=== PATIENT | male | born 2000 | race Caucasian/White ===

== ENCOUNTER → 2020-06-11 16:16 | Outpatient (BNVA) | payer OTHER, SELFPAY | PROVIDERS: Family Provider Nurse Practitioner Family; Visit Provider Nurse Practitioner | DX: S62.396A Other fracture of fifth metacarpal bone, right hand, initial encounter for closed fracture (principal); X58.XXXA Exposure to other specified factors, initial encounter | CPT/HCPCS: 73130 ==

== ENCOUNTER → 2020-06-12 12:40 | Outpatient (BNVA) | payer OTHER, SELFPAY | PROVIDERS: Family Provider Nurse Practitioner Family; Referring Provider Nurse Practitioner; Visit Provider Specialist | DX: S62.306A Unspecified fracture of fifth metacarpal bone, right hand, initial encounter for closed fracture (principal); X58.XXXA Exposure to other specified factors, initial encounter | CPT/HCPCS: 73130 ==

== ENCOUNTER → 2020-06-19 12:19 | Outpatient (BNVA) | payer OTHER, SELFPAY | PROVIDERS: Family Provider Nurse Practitioner Family; Visit Provider Specialist | DX: S62.306A Unspecified fracture of fifth metacarpal bone, right hand, initial encounter for closed fracture (principal); X58.XXXA Exposure to other specified factors, initial encounter | CPT/HCPCS: 73130 ==

== ENCOUNTER → 2020-07-03 13:08 | Outpatient (BNVA) | payer OTHER, SELFPAY | PROVIDERS: Family Provider Nurse Practitioner Family; Visit Provider Specialist | DX: S62.326A Displaced fracture of shaft of fifth metacarpal bone, right hand, initial encounter for closed fracture (principal); X58.XXXA Exposure to other specified factors, initial encounter | CPT/HCPCS: 73130 ==

== ENCOUNTER 2021-03-30 19:59 | Emergency (ER) | payer OTHER, SELFPAY ==
[2021-03-30 20:06] VITALS: BP 136/82; PULSE 98; RESP 18; TEMP 36.7; O2SAT 100; BMI 16.5
--- NOTE | 2021-03-30 20:16 | ED_ITS ---
HPI - Wound/Laceration General: Chief Complaint: Wound/Laceration Stated Complaint: fish hook in righ hand Time Seen by Provider: 03/30/21 20:16 History of Present Illness: HPI narrative: Patient comes in today for concerns of injury to the right middle finger. Patient was working with his fishing supplies and accidentally stuck his right middle finger and lodged a fishing bar into it. Patient appears well. Patient appears no acute distress. Onset (ago): minute(s) Review of Systems General: Reports: 10 or more systems reviewed and unremarkable except in HPI and below Skin/Breast: Reports: other ([place] in the right middle finger.) PFS ED PFSH: Family History Denies family history of Diabetes Stroke Social History Smoking and tobacco status: never smoked Physical Exam Const: COMMON NORMALS: no acute distress and patient oriented x3 GENERAL APPEARANCE: cooperative HENMT: COMMON NORMALS: normocephalic and Normal external nose present HEAD & SCALP: normal to inspection and normocephalic NOSE: Normal external nose present Eye: GENERAL EYE: appearance normal, both eyes and all related structures Neck/C-Spine: COMMON NORMALS: full ROM Chest: COMMONS NORMALS: normal inspection of the chest Resp: COMMON NORMALS: normal respiratory effort EFFORT & INSPECTION: Yes able to speak in complete sentences Cardio: COMMON NORMALS: regular rate and regular rhythm RATE: regular rate RHYTHM: regular rhythm GI: COMMON NORMALS: non-tender Extremity: NARRATIVE EXTREMITY EXAM: Fishing lure with 1 cynthia stuck into the distal phalanx of the finger pad to the right middle finger. Neuro: COMMON NORMALS: patient oriented x3 and moves all extremities Psych: COMMON NORMALS: mental status grossly normal and cooperative Skin: COMMON NORMALS: no rashes or lesions noted GENERAL SKIN EXAM: no rashes or lesions noted Procedures Foreign Body Removal Site: right and hand Description of foreign body: fish hook Sedation/Analgesia: other (Lidocaine 1 mL infiltration) Technique: removal with forceps and incision made to facilitate removal Confirmed by:: direct visualization Complications: none Post-procedure exam: awake, alert Neurovascular: normal distal pulse and no change from pre-procedure Course Vital Signs: Vital signs: Vital Signs Temperature 98.1 F 03/30/21 20:06 Pulse Rate 98 03/30/21 20:06 Respiratory Rate 18 03/30/21 20:06 Blood Pressure 136/82 03/30/21 20:06 Pulse Oximetry 100 03/30/21 20:06 MDM - Wound/Laceration MDM Narrative: Medical decision making narrative: Patient comes in for removal of a fishing hook to his right middle finger. On exam patient has good range of motion is guarded with movement. Patient does not recall his last tetanus shot. Differential diagnosis includes foreign body, need for prophylaxis tetanus, laceration. Fishing hook was removed with minimal effort under local anesthetic and small incision. Patient tolerated well. Patient agreed to have his tetanus updated. Reviewed post procedure care and need for follow-up. Patient stated understanding. Discharge Plan Discharge Patient Disposition: Home Clinical Impression: Fish hook injury of hand Qualifiers: Encounter type: initial encounter Laterality: right Qualified Code(s): S69.91XA - Unspecified injury of right wrist, hand and finger(s), initial encounter Condition: Stable Prescriptions: No Action (DME) [place] splint See Rx Instructions .Route .MEDSULY Qty: 1 RF: 0 Discharge Orders: Discharge ED (Routine); Ordered 03/30/21 Ordered By: Anthony Gonzalez Discharge Diet: Usual diet Discharge Activity: Increase activity as tolerated Patient Instructions: Acute Wound Care (ED), Opioid Safety Activity Restrictions/Additional Instructions: Keep wound clean and dry. Should clean it with mild soap and water. Use a Band-Aid to cover. Follow-up with primary care as needed. Monitor site for signs of infection such as increased redness, fever, and purulent drainage. Return to the emergency room for new concerns. Coding Level of Care Code ED Accounting Machine Operator for Edwin Kent
[2021-03-30] MEDS: tetanus-dipt-pertussis 0.5 mL SDV IM (20:31)
[2021-03-30] MEDS: lidocaine 1% INJ 20 mL INJECTION (20:35)
--- NOTE | 2021-03-30 20:35 | PC.NURSE ---
Area cleaned with soap and water after hook removed and bandaid applied. Patient tolerated well.
--- NOTE | 2021-04-27 05:05 | PM.HP ---
Providers/Chief Complaint Chief Complaint: fish hook in righ hand History of Present Illness Christopher Lucio is a 21 year old male Medications/Allergies Home Medications Medication Instructions Recorded Confirmed Last Taken Type [place] splint #1 ea 06/12/20 07/03/20 Unknown Rx Allergies Allergy/AdvReac Type Severity Reaction Status Date / Time No Known Allergies Allergy Verified 07/03/20 13:12 PFSH Acute PFSH: Family History Denies family history of Diabetes Stroke Social History Smoking and tobacco status: never smoked Vitals/I&O/Wt Last Vital Signs Temp 98.1 F 03/30/21 20:06 Pulse 98 03/30/21 20:06 Resp 18 03/30/21 20:06 BP 136/82 03/30/21 20:06 Pulse Ox 100 03/30/21 20:06 Coding Level of Care Code Acute Media Executive for Edwin Kent
== END 2021-03-30 20:40 | disposition home or self-care (01) ==
PROVIDERS: Emergency Provider Nurse Practitioner Family
DX: S61.242A Puncture wound with foreign body of right middle finger without damage to nail, initial encounter (principal); W26.8XXA Contact with other sharp object(s), not elsewhere classified, initial encounter; Z23 Encounter for immunization
CPT/HCPCS: 10120; 90471; 90715; 99282

== ENCOUNTER 2021-04-27 04:13 | Inpatient (IN) | payer OTHER, SELFPAY ==
[2021-04-27 04:38] VITALS: BMI 15.5
[2021-04-27 04:57] VITALS: BP 118/76; PULSE 117; RESP 18; TEMP 36.9; O2SAT 99
--- NOTE | 2021-04-27 06:06 | PM.HP ---
Providers/Chief Complaint Admitting Physician: Frank Mead MD Chief Complaint: GI Bleed History of Present Illness Christopher Lucio is a 21 year old male with no known past medical history presented today with chief complaint of dark-colored stool. Patient is stating that his symptoms started 24 hours before his arrival in the ER with dark color bowel movements. He is denying previous history of gastric ulcer, alcohol abuse, daily use of NSAIDs, liver disease. He has had 7 bowel movements with dark/coffee-ground stool color. He is denying fever, abdominal pain, dysuria, joint pains, skin rash, recent use of antibiotics. Of note, [place]. He is denying recent camping, tick bites. He did not swim in the [place]. He was transferred from [facility] for possible endoscopy, he was tachycardic hemoglobin initially was 15, he drove himself to [facility], at arrival blood pressure 118/76 pulse 117, he had 1 bowel movement as soon as he arrived and noticed maroon/coffee-ground bowel movement. Review of Systems Const: Denies: fever(s) or chills Eyes: Denies: change in vision ENMT: Denies: throat pain Card: Denies: chest pain Resp: Denies: dyspnea GI: Reports: melena : Denies: flank pain Musc: Denies: neck pain Skin/Breast: Denies: rash Neuro: Denies: headache(s) Psych: Denies: anxiety Endo: Denies: polyuria Jordan/Lymph: Denies: easy bruising All/Imm: Denies: urticaria Medications/Allergies Home Medications Medication Instructions Recorded Confirmed Last Taken Type [place] splint #1 ea 06/12/20 07/03/20 Unknown Rx Allergies Allergy/AdvReac Type Severity Reaction Status Date / Time No Known Allergies Allergy Verified 07/03/20 13:12 PFSH Acute PFSH: Medical History Fracture of fifth metacarpal bone of right hand No pertinent past medical history Surgical History History of cholecystectomy Family History Denies family history of Diabetes Stroke Social History Smoking and tobacco status: never smoked Alcohol intake: current Alcohol intake frequency: holidays/special occasions only Substance/Drug Use: never Household members: significant other Vitals/I&O/Wt Last Vital Signs Temp 98.4 F 04/27/21 04:57 Pulse 117 H 04/27/21 04:57 Resp 18 04/27/21 04:57 BP 118/76 04/27/21 04:57 Pulse Ox 99 04/27/21 04:57 Weight last 48 hrs Weight 52.163 kg Physical Exam Narrative: EXAM NARRATIVE: Young male Laying comfortably in his bed S1, S2 sinus tachycardia Clinical signs of dehydration No skin rash noted Abdomen soft nontender Digital rectal exam with external hemorrhoids Lower extremities no edema EOMI, PERRLA No active neurological deficits No joint swelling A&P Assessment and plan (1) Melanotic stools: Status: Acute Additional A&P Information Melanotic stools Stable blood pressure, clinical signs of dehydration and tachycardia 1 L bolus and start maintenance fluid rate continue n.p.o. Protonix 40 IV twice daily Check stat CBC and BMP Previous hemoglobin 15 Check stool for ova and parasites No previous history of gastric ulcer does not use NSAIDs on daily basis, drinks alcohol occasionally, rectal exam with external hemorrhoid which would not explain melanotic stools H&H at 9 AM N.p.o. DVT prophylaxis: SCDs Full code Attestations Medical Necessity Statement*: Anticipating discharge within 48 hours need monitoring for melanotic stools Time Spent in Patient Care: 35mins Coding Level of Care Code Acute Chief Design Drafter for Edwin Kent Diagnoses Melanotic stools K92.1
[2021-04-27] MEDS: lactated ringers 1,000 ML 999 ML IV (06:15)
[2021-04-27 08:00] VITALS: BP 96/61; PULSE 92; RESP 14; TEMP 36.7; O2SAT 98
[2021-04-27] MEDS: sodium chloride 0.9% 1,000 ML 75 ML IV (08:19)
[2021-04-27] MEDS: pantoprazole 40 mg SDV IVP ×2 (09:34→17:09)
[2021-04-27 09:56] LABS: Basophils % 0.2 %; Eosinophils % 0.5 %; Hematocrit 35.1 % (42.0-52.0); Hemoglobin 11.9 g/dL (11.7-16.6); Lymphocytes # 1.5 10^3/uL (0.8-4.8); Lymphocytes % 18.2 %; Mean Corpuscular HGB Conc 33.9 g/dL (30.0-36.0); Mean Corpuscular Hemoglobin 31.2 pg (28.0-34.0); Mean Corpuscular Volume 91.9 fL (80-94); Mean Platelet Volume 10.8 fL (7.4-10.4); Monocytes # 0.7 10^3/uL (0.2-0.9); Monocytes % 8.6 %; Neutrophils # 5.96 10^3/uL (1.8-7.7); Neutrophils % 72.3 %; Nucleated Red Blood Cells % 0 %; Platelet Count 215 10^3/cmm (130-400); Red Blood Count 3.82 10^6/uL (4.1-5.3); White Blood Count 8.3 10^3/uL (4.0-10.0)
[2021-04-27 10:12] LABS: Anion Gap 11.3 (5-19); Blood Urea Nitrogen 14 mg/dL (6-20); Calcium 8.5 mg/dL (8.5-10.5); Carbon Dioxide 28 mmol/L (22-29); Chloride 107 mmol/L (98-107); Glucose 104 mg/dL (65-115); Osmolality Calculated 295 mOsm/kg (285-295); Potassium 4.3 mmol/L (3.5-5.1); Sodium 142 mmol/L (136-145)
[2021-04-27 10:34] LABS: Amphetamines Screen Urine Negative (Negative); Barbiturates Screen Urine Negative (Negative); Benzodiazepines Screen Urine Negative (Negative); Cocaine Screen Urine Negative (Negative); Opiate Screen Urine Negative (Negative); PCP Screen Urine Negative (Negative); THC Screen Urine Negative (Negative)
[2021-04-27 11:22] VITALS: BP 100/65; PULSE 89; RESP 15; TEMP 37.1; O2SAT 99
--- NOTE | 2021-04-27 12:34 | PC.NURSE ---
Mom requesting call from doctor. Doctor notified.
[2021-04-27 13:08] LABS: C Reactive Protein 2.4 mg/L (0.0-4.9)
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
[2021-04-27 14:22] LABS: Erythrocyte Sedimentation Rate 8 mm/hr (0-10)
[2021-04-27] MEDS: iohexol 300 mg/mL 100 mL Btl IV (15:05)
[2021-04-27 16:00] VITALS: BP 106/63; PULSE 79; RESP 16; TEMP 36.9; O2SAT 100
--- NOTE | 2021-04-27 18:31 | PC.NURSE ---
patient's mother wants patient transferred to [place] or [facility] in [place].
[2021-04-27 20:00] VITALS: BP 113/69; PULSE 84; RESP 17; TEMP 37.3; O2SAT 97
[2021-04-27 22:20] LABS: Hemoglobin 10.9 g/dL (11.7-16.6)
[2021-04-28] VITALS (7 sets, daily range): BP systolic 88–113; BP diastolic 53–66; PULSE 70–96; RESP 16–18; TEMP 36.6–37; O2SAT 98–100
[2021-04-28] MEDS: sodium chloride 0.9% 1,000 ML 75 ML IV ×2 (00:31→09:13)
[2021-04-28 05:39] LABS: Basophils % 0.8 %; Eosinophils # 0.1 10^3/uL (0.0-0.8); Eosinophils % 2.3 %; Hemoglobin 10.4 g/dL (11.7-16.6); Lymphocytes # 1.6 10^3/uL (0.8-4.8); Lymphocytes % 30.5 %; Mean Corpuscular HGB Conc 33.5 g/dL (30.0-36.0); Mean Corpuscular Hemoglobin 31.5 pg (28.0-34.0); Mean Corpuscular Volume 93.9 fL (80-94); Monocytes # 0.6 10^3/uL (0.2-0.9); Monocytes % 10.9 %; Neutrophils # 2.88 10^3/uL (1.8-7.7); Neutrophils % 55.1 %; Nucleated Red Blood Cells % 0 %; Platelet Count 174 10^3/cmm (130-400); Red Cell Distribution Width 12.9 % (12.1-15.1); White Blood Count 5.2 10^3/uL (4.0-10.0)
[2021-04-28 05:56] LABS: Alanine Aminotransferase 8 U/L (0-41); Albumin Level 3.2 g/dL (3.5-5.2); Alkaline Phosphatase 67 IU/L (40-130); Anion Gap 10.1 (5-19); Aspartate Amino Transferase 10 U/L (0-40); Blood Urea Nitrogen 15 mg/dL (6-20); Calcium 8.4 mg/dL (8.5-10.5); Carbon Dioxide 26 mmol/L (22-29); Chloride 107 mmol/L (98-107); Creatinine Clr Calc Pharmacy 121.0927; Globulin 1.9 g/dL (1.3-4.6); Glomerular Filtration Rate 139.8 mL/min (90-130); Glucose 76 mg/dL (65-115); Osmolality Calculated 288 mOsm/kg (285-295); Potassium 4.1 mmol/L (3.5-5.1); Sodium 139 mmol/L (136-145); Total Bilirubin 0.9 mg/dL (0.15-1.2); Total Protein 5.1 g/dL (6.6-8.7)
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
[2021-04-28] MEDS: pantoprazole 40 mg SDV IVP ×2 (09:11→18:08)
--- NOTE | 2021-04-28 10:01 | PC.CHAP ---
Pastoral Care Encounter/Spiritual Assessment Type of Contact [] Declined checkroom attendant visit [] Patient/Family/Request visit [] Outpatient visit [] Follow-up visit [] Physician referral [] Code/Alert [x] Routine visit [] Staff referral [] Actively dying [] Patient sleeping [] Family support [] [] Out of room [] Palliative care [] [] Receiving care in room [] Pre-surgical visit [] Trauma [] Long length of stay [] ICU visit [] Other: Relational/Emotional Strength [] Patient feels connected with others/family/visitors/staff [] Distress [] Loneliness/isolation [] Abandonment Spirituality of Patient [x] Person of Mel [] Attends Congregation of their Mel x[x] Believes in Prayer [] Reads Bible or Quaker materials [] There are Spiritual issues to be addressed Crime Scene Specialist Interventions [x] Prayer [] Active listening [] Non-anxious presence [] Spiritual/emotional support [] Crisis/trauma care [] Spiritual counseling [] Bereavement support [] Provided bereavement packet [] Provided Bible/devotional materials [] Provided toy/stuffed animal, coloring book to patient or family member [] Provided Communion [] Anointing/[place] [] Salvation [x] Completed spiritual assessment [] Other: Impact on Illness or Injury [] Angry [] Fearful [] Anxious [] Often cries [] Exhaustion [] Unable to work [] Unable to attend caodaism [] Unable to walk/stand [] Unable to read [] Unable to drive [] Unable to eat/drink [] Unable to sleep [] Unable to be with family [] Patient intubated [] Other: Summary patient feeling better Time spent with patient 10 min
--- NOTE | 2021-04-28 11:44 | PM.PN ---
Subjective Subjective: Interval history: He reports he has not had any further dark or maroon bowel movements. Denies abdominal pain. No nausea or vomiting. Discussed with him again regarding availability of endoscopic evaluation here. No beds are available today either at [facility] or [place]. He is accepted at [place], however, due to lack of beds there is not clear when a transfer might occur. He states that this time he prefers to continue waiting transfer, with recheck hemoglobin later this evening. He asks about some oral intake, ice chips, water, etc. Vitals/I&O/Wt Last Vital Signs Temp 98.3 F 04/28/21 08:00 Pulse 93 04/28/21 08:00 Resp 18 04/28/21 08:00 BP 102/64 04/28/21 08:00 Pulse Ox 99 04/28/21 08:00 04/27/21 04/28/21 04/28/21 22:59 06:59 14:59 Intake Total 999 652.5 / 652.5 Balance 999 652.5 / 652.5 Weight last 48 hrs Weight 52.163 kg Physical Exam Const: COMMON NORMALS: no acute distress and patient oriented x3 HENMT: COMMON NORMALS: oropharynx normal Neck/C-Spine: COMMON NORMALS: no JVD Resp: COMMON NORMALS: normal respiratory effort and clear to auscultation bilaterally AUSCULTATION: clear to auscultation bilaterally Cardio: COMMON NORMALS: no JVD, regular rhythm, S1 normal heart sound present, S2 normal heart sound present and No murmurs present (Cardio) RHYTHM: regular rhythm HEART SOUNDS: S1 normal heart sound present and S2 normal heart sound present GI: COMMON NORMALS: Normal to inspection, nondistended, normoactive bowel sounds present, Soft to palpation and non-tender PALPATION: Yes Soft to palpation Extremity: COMMON NORMALS: no joint enlargement and no pedal edema Neuro: COMMON NORMALS: patient oriented x3 and moves all extremities Skin: COMMON NORMALS: no rashes or lesions noted GENERAL SKIN EXAM: no rashes or lesions noted Data : 04/28/21 05:10 04/28/21 05:10 Micro: Microbiology 04/27/21 10:04 Enteric Pathogens (PCR) - Final Stool Routine Collection Parasite Antigen Panel - Final A&P Assessment and plan (1) Melanotic stools: Hemoglobin with further decline to 10.4. Discussed with him this morning. However, he states has not had any further melanotic stools or maroon-colored stools. Denies abdominal pain. No nausea or vomiting. When some water, ice just. As per discussion he would like to continue to await transfer to , currently pending bed opening. As such discussed with him we could confirm with surgery given he is not pursuing endoscopy here regarding strength some oral intake. CT abdomen pelvis with IV contrast without signs of trauma. Incidental findings with liver nodule, renal cysts discussed with him, his mother and girlfriend present at the time as well. Stool bacterial and parasite panel is negative. Add C. difficile. Continue bowel rest, PPI. Recheck hemoglobin. As per prior discussion at some point additional consideration of Meckel scan may be of benefit. Status: Acute Attestations Medical Necessity Statement*: Continue admission for assessment management of GI bleeding with acute blood loss anemia, pending transfer to outside facility for additional work-up and treatment as per patient and family request. Coding Level of Care Code Acute Service Delivery Consultant for Edwin Kent Diagnoses Melanotic stools K92.1
--- NOTE | 2021-04-28 15:10 | PC.NURSE ---
I called and spoke with [facility] Transfer Service and per Paola with them, there will not likely be a medical bed for patient until 04/29. I went into patient's room and spoke with him and informed him of this. I also informed him that I had spoken with Dr. Alvarez and he would not be comfortable with discharging the patient today. The patient verbalizes understanding and wishes to think about his options and will let us know as soon as he has reached a decision. I spoke with Dr. Alvarez and informed him of this.
[2021-04-28 17:34] LABS: Hemoglobin 12.5 g/dL (11.7-16.6)
[2021-04-29 03:30] VITALS: BP 99/61; PULSE 83; RESP 16; TEMP 36.5; O2SAT 99
[2021-04-29 06:13] LABS: Basophils % 0.6 %; Eosinophils # 0.1 10^3/uL (0.0-0.8); Eosinophils % 2.8 %; Hematocrit 29.3 % (42.0-52.0); Hemoglobin 9.9 g/dL (11.7-16.6); Lymphocytes # 1.3 10^3/uL (0.8-4.8); Lymphocytes % 28.4 %; Mean Corpuscular HGB Conc 33.8 g/dL (30.0-36.0); Mean Corpuscular Hemoglobin 31.3 pg (28.0-34.0); Mean Corpuscular Volume 92.7 fL (80-94); Mean Platelet Volume 10.7 fL (7.4-10.4); Monocytes # 0.5 10^3/uL (0.2-0.9); Monocytes % 9.8 %; Neutrophils # 2.72 10^3/uL (1.8-7.7); Nucleated Red Blood Cells % 0 %; Platelet Count 184 10^3/cmm (130-400); Red Blood Count 3.16 10^6/uL (4.1-5.3); Red Cell Distribution Width 12.6 % (12.1-15.1); White Blood Count 4.7 10^3/uL (4.0-10.0)
[2021-04-29 06:29] LABS: Alanine Aminotransferase 6 U/L (0-41); Albumin Level 3.2 g/dL (3.5-5.2); Alkaline Phosphatase 58 IU/L (40-130); Anion Gap 10.4 (5-19); Aspartate Amino Transferase 10 U/L (0-40); Blood Urea Nitrogen 12 mg/dL (6-20); Calcium 8.1 mg/dL (8.5-10.5); Carbon Dioxide 28 mmol/L (22-29); Chloride 105 mmol/L (98-107); Globulin 1.9 g/dL (1.3-4.6); Glucose 79 mg/dL (65-115); Osmolality Calculated 287 mOsm/kg (285-295); Potassium 4.4 mmol/L (3.5-5.1); Sodium 139 mmol/L (136-145); Total Bilirubin 0.5 mg/dL (0.15-1.2); Total Protein 5.1 g/dL (6.6-8.7)
[2021-04-29] MEDS: sodium chloride 0.9% 1,000 ML 75 ML IV ×2 (06:40→18:31)
[2021-04-29 07:30] VITALS: BP 99/62; PULSE 74; RESP 18; TEMP 36.7; O2SAT 98
[2021-04-29] MEDS: pantoprazole 40 mg SDV IVP ×2 (08:24→18:31)
--- NOTE | 2021-04-29 10:36 | PC.CHAP ---
Pastoral Care Encounter/Spiritual Assessment Type of Contact [] Declined orthopedic shoes salesperson visit [] Patient/Family/Request visit [] Outpatient visit [] Follow-up visit [] Physician referral [] Code/Alert [x] Routine visit [] Staff referral [] Actively dying [] Patient sleeping [] Family support [] [] Out of room [] Palliative care [] [] Receiving care in room [] Pre-surgical visit [] Trauma [] Long length of stay [] ICU visit [] Other: Relational/Emotional Strength [] Patient feels connected with others/family/visitors/staff [] Distress [] Loneliness/isolation [] Abandonment Spirituality of Patient [] Person of Mel [] Attends Hoahaoism of their Mel [] Believes in Prayer [] Reads Bible or Jew materials [] There are Spiritual issues to be addressed Consumer Analyst Interventions [x] Prayer [] Active listening [] Non-anxious presence [] Spiritual/emotional support [] Crisis/trauma care [] Spiritual counseling [] Bereavement support [] Provided bereavement packet [] Provided Bible/devotional materials [] Provided toy/stuffed animal, coloring book to patient or family member [] Provided Communion [] Anointing/[place] [] Salvation [] Completed spiritual assessment [] Other: Impact on Illness or Injury [] Angry [] Fearful [] Anxious [] Often cries [] Exhaustion [] Unable to work [] Unable to attend rastafarian [] Unable to walk/stand [] Unable to read [] Unable to drive [] Unable to eat/drink [] Unable to sleep [] Unable to be with family [] Patient intubated [] Other: Summary patient ok Time spent with patient 10 min
[2021-04-29 11:46] VITALS: BP 107/72; PULSE 100; RESP 16; TEMP 36.8; O2SAT 97
[2021-04-29 15:33] VITALS: BP 96/55; PULSE 81; RESP 18; TEMP 36.9; O2SAT 100
[2021-04-29 19:25] VITALS: BP 108/70; PULSE 81; RESP 18; TEMP 36.8; O2SAT 100
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
[2021-04-29 23:45] VITALS: BP 97/63; PULSE 70; RESP 16; TEMP 36.7; O2SAT 100
[2021-04-30 03:40] VITALS: BP 96/60; PULSE 74; RESP 16; TEMP 36.6; O2SAT 99
[2021-04-30 06:47] LABS: Basophils % 0.5 %; Eosinophils # 0.1 10^3/uL (0.0-0.8); Eosinophils % 2.2 %; Hematocrit 30.3 % (42.0-52.0); Hemoglobin 10.2 g/dL (11.7-16.6); Lymphocytes # 1.1 10^3/uL (0.8-4.8); Lymphocytes % 25.4 %; Mean Corpuscular HGB Conc 33.7 g/dL (30.0-36.0); Mean Corpuscular Hemoglobin 31.7 pg (28.0-34.0); Mean Corpuscular Volume 94.1 fL (80-94); Mean Platelet Volume 10.9 fL (7.4-10.4); Monocytes # 0.5 10^3/uL (0.2-0.9); Monocytes % 10.9 %; Neutrophils # 2.52 10^3/uL (1.8-7.7); Neutrophils % 60.8 %; Nucleated Red Blood Cells % 0 %; Platelet Count 189 10^3/cmm (130-400); Red Blood Count 3.22 10^6/uL (4.1-5.3); Red Cell Distribution Width 12.5 % (12.1-15.1); White Blood Count 4.1 10^3/uL (4.0-10.0)
[2021-04-30 07:38] VITALS: BP 93/57; PULSE 74; RESP 18; TEMP 36.9; O2SAT 100
[2021-04-30] MEDS: pantoprazole 40 mg SDV IVP (10:20)
[2021-04-30 11:27] VITALS: BP 113/68; PULSE 93; RESP 18; TEMP 37.1; O2SAT 100
--- NOTE | 2021-04-30 12:04 | PM.PN ---
Subjective Subjective: Interval history: patient has been doing ok, no evidence of active GI bleed Vitals/I&O/Wt Last Vital Signs Temp 98.7 F 04/30/21 11:27 Pulse 93 04/30/21 11:27 Resp 18 04/30/21 11:27 BP 113/68 04/30/21 11:27 Pulse Ox 100 04/30/21 11:27 04/29/21 04/30/21 04/30/21 22:59 06:59 14:59 Intake Total 948.75 / 1728.75 240 / 1728.75 1000 / 1000 Balance 948.75 / 1728.75 240 / 1728.75 1000 / 1000 Physical Exam Narrative: EXAM NARRATIVE: Abdomen : soft Data : 04/30/21 06:00 04/29/21 05:40 A&P Assessment and plan (1) Melanotic stools: 21-year-old male otherwise healthy who presents with 24-hour history of melanotic stool. He has not had any further bleeding per rectum since last night and he denies any abdominal pain, nausea, vomiting. CT abdomen pelvis performed yesterday did not show any evidence of injury. Patient's family wants him transferred to [place] and is currently on the waiting list. Patient has been stable without any evidence of active GI bleed and Hb is 10.2 but he wants to proceed with an EGD now since he is unlikely to get transferred with the bed shortage. Procedure, risks and benefits have been discussed with the patient Continue Protonix IV 40 twice daily Status: Acute Attestations Medical Necessity Statement*: melena Coding Level of Care Code Acute Hair Clipper Power [facility] Diagnoses Melanotic stools K92.1
[2021-04-30 12:20] VITALS: BP 132/73; PULSE 89; RESP 18; TEMP 37.4; O2SAT 100
[2021-04-30] MEDS: sodium chloride 0.9% 1,000 ML 30 ML IV (12:30)
[2021-04-30 12:51] VITALS: BP 132/79; PULSE 100; RESP 18; TEMP 36.1; O2SAT 97
--- NOTE | 2021-04-30 12:53 | P.ANESASSM_ITS ---
Pre-Anesthetic Assessment Pre-Anesthetic Assessment: Height/Weight: Height 1.83 m Weight 52.163 kg Temp Pulse Resp BP Pulse Ox 99.3 F 89 18 132/73 100 04/30/21 12:20 04/30/21 12:20 04/30/21 12:20 04/30/21 12:20 04/30/21 12:20 Preop Diagnosis: melena Proposed Procedure: Operation Date: 04/30/21 12:30 Proposed Procedures p EGD(Not Applicable) - Rodrigo Amezcua MD Was Beta Manjula taken within 24 hours: N/A Was Clonidine taken within 24 hours: N/A Social: Social History: No alcohol and No tobacco Exam: Pre-Anes Outpt Exam: alert, oriented x 3, clear to auscultation bilaterally and regular rate & rhythm Airway: Submandibular: WNL Cervical ROM: WNL MP: 2 Pulmonary: Pulmonary: None reported CV/HEM: CV/HEM: None reported : : None reported Hepatic: Hepatic: None reported GI: Comments: Melena and abdominal pain Metabolic: Metabolic: None reported Musc/skel: Musc/skel: None reported Neuropsych: Neuropsych: None reported Anesthetic Plan: ASA status: 2 Anesthesia: MAC Meds/Allergies Current Medications: Current Medications Generic Name Dose Route Start Last Admin Trade Name Freq PRN Reason Stop Dose Admin Pantoprazole Sodiu m 40 mg 04/27/21 09:00 04/30/21 10:20 Pantoprazole 40 Mg Sdv IVP 40 mg BID SAULO Administration PFSH Anesthesia PFSH: Medical History Fracture of fifth metacarpal bone of right hand No pertinent past medical history Surgical History History of cholecystectomy Family History Denies family history of Diabetes Stroke Social History Smoking and tobacco status: never smoked Alcohol intake: current Alcohol intake frequency: holidays/special occasions only Substance/Drug Use: never Household members: significant other Data Anesthesia CBC & Chem 7: 04/30/21 06:00 04/29/21 05:40 Other Labs: Laboratory Results - last 48 hr 04/28/21 04/29/21 04/29/21 17:11 05:40 05:40 WBC 4.7 RBC 3.16 L Hgb 12.5 9.9 L Hct 29.3 L MCV 92.7 MCH 31.3 MCHC 33.8 RDW 12.6 Plt Count 184 MPV 10.7 H Neut % (Auto) 58.0 Lymph % (Auto) 28.4 [place] % (Auto) 9.8 Eos % (Auto) 2.8 Baso % (Auto) 0.6 Neut # (Auto) 2.72 Lymph # (Auto) 1.3 [place] # (Auto) 0.5 Eos # (Auto) 0.1 Baso # (Auto) 0.0 Nucleated RBC % (auto) 0 Nucleated RBCs # 0.0 Sodium 139 Potassium 4.4 Chloride 105 Carbon Dioxide 28 Anion Gap 10.4 BUN 12 Creatinine 0.6 L GFR Calculation 167.0 H Glucose 79 Calculated Osmolality 287 Calcium 8.1 L Total Bilirubin 0.5 AST 10 ALT 6 Alkaline Phosphatase 58 Total Protein 5.1 L Albumin 3.2 L Globulin 1.9 04/30/21 06:00 WBC 4.1 RBC 3.22 L Hgb 10.2 L Hct 30.3 L MCV 94.1 H MCH 31.7 MCHC 33.7 RDW 12.5 Plt Count 189 MPV 10.9 H Neut % (Auto) 60.8 Lymph % (Auto) 25.4 [place] % (Auto) 10.9 Eos % (Auto) 2.2 Baso % (Auto) 0.5 Neut # (Auto) 2.52 Lymph # (Auto) 1.1 [place] # (Auto) 0.5 Eos # (Auto) 0.1 Baso # (Auto) 0.0 Nucleated RBC % (auto) 0 Nucleated RBCs # 0.0 Sodium Potassium Chloride Carbon Dioxide Anion Gap BUN Creatinine GFR Calculation Glucose Calculated Osmolality Calcium Total Bilirubin AST ALT Alkaline Phosphatase Total Protein Albumin Globulin Cardiac Studies: No Data to Display
[2021-04-30 13:02] VITALS: BP 121/73; PULSE 84; RESP 18; O2SAT 100
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
== END 2021-04-30 14:17 | disposition home or self-care (01) | DRG 378 ==
PROVIDERS: Surgery; Admitting Provider Internal Medicine; Visit Provider Internal Medicine
PROC: 0DJ08ZZ Inspection of Upper Intestinal Tract, Via Natural or Artificial Opening Endoscopic (ICD-10-PCS; CPT 43235; principal; 2021-04-30 12:30)
DX: K92.1 Melena (principal); D62 Acute posthemorrhagic anemia; K64.4 Residual hemorrhoidal skin tags; K76.9 Liver disease, unspecified; N28.1 Cyst of kidney, acquired; E86.0 Dehydration
CPT/HCPCS: 36415; 43235; 74177; 80048; 80053; 80306; 85018; 85025; 85651; 86140; 87425; 87493; 87506; C9113; G0378; G0379; J2704; J7030; Q9967

== ENCOUNTER 2021-07-12 23:07 | Emergency (ER) | payer OTHER, SELFPAY ==
[2021-07-12 23:23] VITALS: BP 132/86; PULSE 94; RESP 18; TEMP 36.6; O2SAT 100; BMI 15.5
--- NOTE | 2021-07-12 23:37 | ED_ITS ---
HPI - Animal Bite General: Chief Complaint: Animal Bite Stated Complaint: Raccoon Bite Time Seen by Provider: 07/12/21 23:10 Source: patient Mode of arrival: ambulatory Limitations: no limitations History of Present Illness: HPI narrative: Patient is a 21-year-old male who presents to ED today following a raccoon bite to his left forearm that he sustained just prior to arrival. Patient tells me the raccoon is an outdoor pet that they have had since it was 2 weeks old. He states normally the raccoon stays around the house and sleeps in a tree box they created for it however he states approximately 2 weeks ago the raccoon left and was missing until it came back this evening. Patient states he was playing with the animal and he seemed to be acting normally however he bit him to his left forearm. complaint: animal bite Onset (ago): hour(s) Animal: other (raccoon) Description of animal: appeared well Mechanism: bite Location - Extremities: Left: forearm Context: playing with animal Associated symptoms: Reports no associated symptoms; Deny headache(s) Review of Systems Musc: Denies: extremity pain, extremity swelling, joint pain or joint swelling Skin/Breast: Reports: other (bite/scratches to L forearm) Neuro: Denies: headache(s), numbness in extremities, weakness in extremities or sensory changes PFS ED PFSH: Medical History Fracture of fifth metacarpal bone of right hand No pertinent past medical history Surgical History History of cholecystectomy Family History Denies family history of Diabetes Stroke Social History Smoking and tobacco status: never smoked Alcohol intake: current Alcohol intake frequency: holidays/special occasions only Household members: significant other Physical Exam Const: COMMON NORMALS: no acute distress, average body habitus, patient oriented x3, no limitations, healthy appearing, alert and well nourished ORIENTATION/CONSCIOUSNESS: Yes awake, Yes oriented to person, Yes oriented to place and Yes oriented to time Extremity: COMMON NORMALS: full ROM OTHER: pt has very minor bite to volar L forearm; some minor surrounding scratches Neuro: COMMON NORMALS: patient oriented x3 SENSORIUM/ORIENTATION: Yes alert, Yes oriented to person, Yes oriented to place and Yes oriented to time Skin: NARRATIVE SKIN EXAM: see extremity assessment for pertinent skin findin gs Course Vital Signs: Vital signs: Vital Signs Temperature 97.8 F 07/12/21 23:23 Pulse Rate 94 07/12/21 23:23 Respiratory Rate 18 07/12/21 23:23 Blood Pressure 132/86 07/12/21 23:23 Pulse Oximetry 100 07/12/21 23:23 MDM - Animal Bite MDM Narrative: Medical decision making narrative: Will start rabies PEP and place on prophylactic antibiotics. Return to ED precautions given. Patient was given schedule for remainder of rabies immunizations. Discharge Plan Discharge Patient Disposition: Home Clinical Impression: Need for post exposure prophylaxis for rabies Bitten by raccoon Qualifiers: Encounter type: initial encounter Qualified Code(s): W55.51XA - Bitten by raccoon, initial encounter Condition: Stable Prescriptions: New Augmentin 875-125 mg tablet 1 tab PO Q12H 7 Days Qty: 14 RF: 0 Discharge Orders: Discharge ED (Routine); Ordered 07/13/21 Ordered By: Lien Mary Patient Instructions: Rabies Vaccine (Injection), Rabies Immune Globulin (Injection) Activity Restrictions/Additional Instructions: You have been given a schedule for the remainder of your rabies immunizations. These can be completed at [facility] urgent care. Monitor for signs of infection such as redness, swelling, increased pain, drainage. Please seek medical reevaluation of these occur. Please fill and begin your antibiotics immediatley. Coding Level of Care Code ED Systems Navigator for Edwin Fwd Exam Expanded Problem Focused
[2021-07-13] MEDS: amoxicillin-clav 875-125 mg Tablet 1 TAB PO (00:05)
[2021-07-13] MEDS: rabies vaccine 2.5 unit SDV IM (01:08)
[2021-07-13] MEDS: rabies IG 300 unit/mL SDV 1 mL 1200 UNIT IM (01:12)
== END 2021-07-13 01:17 | disposition home or self-care (01) ==
PROVIDERS: Emergency Provider Physician Assistant
DX: S51.852A Open bite of left forearm, initial encounter (principal); W55.51XA Bitten by raccoon, initial encounter; Z20.3 Contact with and (suspected) exposure to rabies; Z29.14 Encounter for prophylactic rabies immune globulin; Z23 Encounter for immunization
CPT/HCPCS: 90375; 90471; 90675; 96372; 99283

== ENCOUNTER 2021-12-28 14:34 | Outpatient (CLI) | payer OTHER, SELFPAY ==
--- NOTE | 2021-12-31 07:53 | ONC CON_ITS ---
Dr. Garcia New Patient Note Patient: Christopher Lucio Unit #: [id number]: 2000 Dicatated By: Ashwin Garcia M.D.Date of Visit: Dec 28, 2021 Onc MED New Patient/Consult Referring Physician: Dr. Frank Aviles M.D. Chief Complaint: Anemia. History of Present Illness: This is a 21-year-old man with hypochromic/microcytic anemia. He has been in good general health. In April 2021 he was admitted to the hospital with a one-day history of having melanotic stools. His initial CBC showed borderline low hemoglobin at 12.5 g, but overnight it dropped to 9.9 g. His EGD on 04/30/2021 showed no abnormal findings. He was discharged home with his hemoglobin stable at 10.2 g. The red cell indices at that time were normal. A follow-up CBC with Dr. Aviles on 09/28/2021 showed moderately severe anemia with hemoglobin 9.4 g and hematocrit 32.3%. The red cell indices were hypochromic/microcytic with MCV 69 and MCH 20. The white blood cell count was normal at 8600 and the platelet count was 308,000. As of 11/24/2021 the hemoglobin is still low at 8.7 g. His serum iron studies showed very low transferrin saturation at <1% and the ferritin was low at 1 ng/mL, consistent with iron deficiency. He recently had stool Hemoccult testing, and at least 1 of those was positive. In the meantime, he did have additional GI evaluation with a baked goods stock clerk in [place], [place]. I do not have those results available, but the EGD reportedly showed some gastritis. There were no abnormal findings on the colonoscopy. He is now scheduled to have further evaluation with camera endoscopy. His most recent CBC, from 12/21/2021, showed hemoglobin 8.7 g with hematocrit 32.6%. The red cell indices were again hypochromic/microcytic. The white blood cell count was 7500 and the platelet count was 454,000. Within the past 2 or 3 days he has started an oral iron supplement. He says that he has not necessarily been feeling bad, though he has been tiring more easily and he has noticed that he gets short of breath with more strenuous activity. He has been able to continue working, though. His ECOG score is 0. He has good appetite. His weight recently has been up a little. He does not have fever or night sweats. He has not had sore mouth or throat, and he has no difficulty swallowing. He does not complain of cough. He has not been having resting dyspnea or chest pain. He has had no nausea/vomiting or abdominal pain. He has had no problems with bowel function other than occasional, mild constipation. He has not been aware of any blood in the stool. He has no complaints. He has no significant joint or bone pain. He does not complain of headache. He has occasional orthostatic lightheadedness. He has no numbness/paresthesia or other focal neurologic symptoms. He does have some chronic anxiety. Past Medical History: He has had some chronic anxiety. He has had no other prior medical illnesses. Past Surgical History: He underwent EGD on , and he had a subsequent EGD and colonoscopy in [place]. His only other surgery was acholecystectomy in 2016. Medications: He has not been on any prescription medication. He recently started ferrous sulfate 325 mg daily. Allergies: No Known Allergies. Social History: He is . 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 He is a non-smoker. He has had moderate alcohol use, typically 2 beers per day, but occasionally a little more. He has cut down now. Family History: His mother and father are in good health, both at age 48. A brother has ADHD, but he is otherwise in good health. There is no history of anemia in the family. Review Of Symptoms: Constitutional - He complains that he tires more easily, but he has normal activity. His appetite is good. His weight is up a few pounds. He does not have fever, night sweats, or hot flashes. ECOG score is 0, Eyes - No change in vision, ENMT - No hearing loss or tinnitus. No sinus congestion/drainage. No mouth sores. No sore throat or difficulty swallowing, Hematologic/Lymphatic - No abnormal bruising or bleeding, Respiratory - He has mild exertional dyspnea. No cough. No pleuritic pain or hemoptysis, Cardiovascular - No angina pain. No palpitations, Gastrointestinal - No nausea/vomiting or abdominal pain. No heartburn or acid reflux. No diarrhea or constipation. He has not been aware of any blood in the stool, but he recently had a positive stool Hemoccult, Genitourinary (M) - No dysuria or hematuria. No urinary frequency. No urgency or incontinence, Musculoskeletal - No joint or bone pain, Integumentary - No skin rash or other skin changes, Neurologic - No headache. He has occasional orthostatic lightheadedness. No numbness or tingling. No other focal neurologic symptoms, Psychiatric - He has anxiety. No depression. No insomnia. Vital Signs: Performed on Dec 28, 2021 15:54: 4, 0, 16.87 (LOW), 1.67 sq.m, 70 in, 99 %, 110 /min (HIGH), 18 /min, 125/83 mm(hg), 98.5 F, and 117.6 lbs (HIGH). Physical Examination: Constitutional - He is thin, but he appears to be in good general health, Eyes - Sclerae nonicteric. Conjunctivae clear, ENMT - No lesions noted in the oral cavity, Neck - No mass or thyromegaly, Hematologic/Lymphatic - No cervical, clavicular, or axillary adenopathy, Respiratory - Lungs are clear with good air movement bilaterally, Cardiovascular - Heart rhythm is regular. There is no murmur, gallop, or rub noted, Abdomen - Soft and non-tender. Liver and spleen are not enlarged. There is no abdominal mass or ascites noted and there is no inguinal adenopathy, Back/Spine - No spine or CVA tenderness noted, Extremities - No edema. Pedal pulses are palpable bilaterally, Integumentary - No rashes. No suspicious skin lesions noted, Neurologic - No focal neurologic deficits noted. Problem List: 1. Hypochromic/microcytic anemia consistent with iron deficiency. At least some component appears to be due to GI blood loss. It is uncertain to what extent inadequate oral iron absorption may be contributing. 2. He has had some chronic anxiety. Problems Addressed with this Encounter and Plan: Patient with hypochromic/microcytic anemia consistent with iron deficiency. At least some component appears to be due to GI blood loss, as he was having melanotic stools at initial presentation in April 2021, and he recently had a heme positive stool test. Thus far a specific source for the blood loss has not been determined. He is scheduled to have further evaluation with camera endoscopy. In the meantime, he will now continue oral iron supplementation with ferrous sulfate 325 mg daily. I will schedule him for a repeat CBC in 2 weeks and again in 4 weeks. If he is not showing adequate response to the oral iron or not tolerating it, he will be given the option to have parenteral iron replacement. Signed By: Ashwin Garcia M.D. <<Signature on File>>
== END 2021-12-28 14:35 | disposition home or self-care (01) ==
PROVIDERS: PCP Electrodiagnostic Medicine; Visit Provider Internal Medicine Hematology & Oncology
DX: D50.9 Iron deficiency anemia, unspecified (principal); F41.9 Anxiety disorder, unspecified
CPT/HCPCS: 99204

== ENCOUNTER 2022-01-07 17:07 | Outpatient (CLI) | payer OTHER, SELFPAY ==
--- NOTE | 2022-01-07 17:39 | XR_ITS ---
WS: [id number] XR abdomen 1V* [id number] REASON FOR EXAM: FOREIGN BODY IN SMALL INTESTINE FINDINGS: Complex radiopaque foreign body is seen overlying the right upper to mid pelvis, likely near the ileo cecal valve. Unremarkable bowel gas pattern. No free air. XR/XR abdomen 1V* [id number] IMPRESSION: Presumed GI tract performed body as above.
== END 2022-01-07 17:08 | disposition home or self-care (01) ==
LOC: RAD 17:14
PROVIDERS: PCP Electrodiagnostic Medicine; Visit Provider Internal Medicine Rheumatology
DX: T18.3XXA Foreign body in small intestine, initial encounter (principal)
CPT/HCPCS: 74018

== ENCOUNTER 2022-01-11 07:54 | Outpatient (CLI) | payer OTHER, SELFPAY ==
[2022-01-11 08:48] LABS: Basophils % 0.9 %; Eosinophils # 0.1 10^3/uL (0.0-0.8); Eosinophils % 2.8 %; Hematocrit 38.3 % (42.0-52.0); Hemoglobin 10.4 g/dL (11.7-16.6); Lymphocytes # 0.9 10^3/uL (0.8-4.8); Lymphocytes % 26.1 %; Mean Corpuscular HGB Conc 27.2 g/dL (30.0-36.0); Mean Corpuscular Hemoglobin 19.8 pg (28.0-34.0); Mean Corpuscular Volume 73.1 fl (80-94); Monocytes # 0.7 10^3/uL (0.2-0.9); Monocytes % 20.2 %; Neutrophils # 1.63 10^3/uL (1.8-7.7); Nucleated Red Blood Cells % 0 %; Platelet Count 219 10^3/cmm (130-400); Red Blood Count 5.24 10^6/uL (4.1-5.3); Red Cell Distribution Width 25.1 % (12.1-15.1); White Blood Count 3.3 10^3/uL (4.0-10.0)
[2022-01-11 08:51] LABS: Iron 23 ug/dL (59-158)
[2022-01-11 14:46] LABS: Iron 23 ug/dL (59-158); Percent Saturation 7.4 % (20-50); Total Iron Binding Capacity 309 mcg/dl; Unsaturated Iron Binding 286 ug/dL (112-347)
== END 2022-01-11 07:55 | disposition home or self-care (01) ==
PROVIDERS: PCP Electrodiagnostic Medicine; Visit Provider Internal Medicine Medical Oncology
DX: D50.8 Other iron deficiency anemias (principal)
CPT/HCPCS: 36415; 83540; 83550; 85025

== ENCOUNTER 2022-01-15 15:17 | Outpatient (CLI) | payer OTHER, SELFPAY ==
--- NOTE | 2022-01-15 15:50 | XR_ITS ---
WS: [id number] Exam: XR abdomen 1V* [id number] Date/Time of Exam: 01/15/2022 3:53 PM Reason For Exam: FOREIGN BODY IN SMALL INTESTINE, INITIAL ENCOUNTER Compared to the last exam 01/07/2022. No bowel obstruction or free air. No sign of organ enlargement. Signs of prior cholecystectomy. Regio nal bony elements are intact. A small metallic density apparently representing a GI camera superimpos es the right pelvis and is likely in the sigmoid colon. XR/XR abdomen 1V* [id number] IMPRESSION: 1. No acute abdominal finding. 2. Small metallic density is seen in the right pelvis apparently representing a GI camera probably located in the sigmoid colon
== END 2022-01-15 15:18 | disposition home or self-care (01) ==
PROVIDERS: PCP Electrodiagnostic Medicine; Visit Provider Internal Medicine Gastroenterology
DX: T18.3XXA Foreign body in small intestine, initial encounter (principal); X58.XXXA Exposure to other specified factors, initial encounter
CPT/HCPCS: 74018

== ENCOUNTER 2022-01-25 14:28 | Outpatient (CLI) | payer OTHER, SELFPAY ==
[2022-01-25 15:03] LABS: Basophils # 0.1 10^3/uL (0.0-0.1); Eosinophils # 0.1 10^3/uL (0.0-0.8); Eosinophils % 1.2 %; Hematocrit 39.3 % (42.0-52.0); Hemoglobin 10.9 g/dL (11.7-16.6); Lymphocytes # 1.2 10^3/uL (0.8-4.8); Lymphocytes % 18.3 %; Mean Corpuscular HGB Conc 27.7 g/dL (30.0-36.0); Mean Corpuscular Hemoglobin 21.5 pg (28.0-34.0); Mean Corpuscular Volume 77.4 fl (80-94); Mean Platelet Volume 11.4 fL (7.4-10.4); Monocytes # 0.4 10^3/uL (0.2-0.9); Monocytes % 5.2 %; Neutrophils # 5.03 10^3/uL (1.8-7.7); Nucleated Red Blood Cells % 0 %; Platelet Count 344 10^3/cmm (130-400); Red Blood Count 5.08 10^6/uL (4.1-5.3); White Blood Count 6.8 10^3/uL (4.0-10.0)
[2022-01-25 15:47] LABS: Iron 17 ug/dL (59-158); Percent Saturation 6.2 % (20-50); Total Iron Binding Capacity 272 mcg/dl; Unsaturated Iron Binding 255 ug/dL (112-347)
[2022-01-25 16:07] LABS: Slide Review Slide Review Perform
[2022-01-25 16:14] LABS: Reticulocyte % 0.7 % (0.5-2.0)
[2022-01-25 16:17] LABS: C Reactive Protein 19.9 mg/L (0.0-4.9)
== END 2022-01-25 14:29 | disposition home or self-care (01) ==
LOC: LAB 14:29
PROVIDERS: PCP Electrodiagnostic Medicine; Visit Provider Internal Medicine Medical Oncology
DX: D50.8 Other iron deficiency anemias (principal)
CPT/HCPCS: 83540; 83550; 85025; 85045; 86140

== ENCOUNTER 2022-01-29 09:52 | Outpatient (CLI) | payer OTHER, SELFPAY ==
--- NOTE | 2022-01-31 13:51 | ONC FU_ITS ---
Bebe Fernando Progress Note Patient: Christopher Lucio Unit #: [id number]: 2000 Dicatated By: Bebe Fernando N.P.Date of Visit:Jan 29, 2022 Onc MED Follow-up/Prog Note Chief Complaint: Anemia. History of Present Illness: This is a 21-year-old man with hypochromic/microcytic anemia. He has been in good general health. In April 2021 he was admitted to the hospital with a one-day history of having melanotic stools. His initial CBC showed borderline low hemoglobin at 12.5 g, but overnight it dropped to 9.9 g. His EGD on 04/30/2021 showed no abnormal findings. He was discharged home with his hemoglobin stable at 10.2 g. The red cell indices at that time were normal. A follow-up CBC with Dr. Aviles on 09/28/2021 showed moderately severe anemia with hemoglobin 9.4 g and hematocrit 32.3%. The red cell indices were hypochromic/microcytic with MCV 69 and MCH 20. The white blood cell count was normal at 8600 and the platelet count was 308,000. As of 11/24/2021 the hemoglobin is still low at 8.7 g. His serum iron studies showed very low transferrin saturation at <1% and the ferritin was low at 1 ng/mL, consistent with iron deficiency. He recently had stool Hemoccult testing, and at least 1 of those was positive. In the meantime, he did have additional GI evaluation with a senior mechanical project manager in [place], [place]. I do not have those results available, but the EGD reportedly showed some gastritis. There were no abnormal findings on the colonoscopy. He is now scheduled to have further evaluation with camera endoscopy. His most recent CBC, from 12/21/2021, showed hemoglobin 8.7 g with hematocrit 32.6%. The red cell indices were again hypochromic/microcytic. The white blood cell count was 7500 and the platelet count was 454,000. Within the past 2 or 3 days he has started an oral iron supplement. Patient presents today for follow-up. He states he has some mild fatigue but otherwise feeling well. His appetite has been pretty good. No fevers, chills, night sweats. No shortness of breath or chest pain. He did experience some nausea while taking his iron supplements so he discontinued those recently. He denies diarrhea constipation or abdominal pain. No urinary symptoms. No joint pain or weakness. No headaches or dizziness. No numbness or paresthesias. Review Of Symptoms: See above. Past Medical History: Anxiety Past Surgical History: EGD and colonoscopy EGD in 2020 Cholecystectomy in 2015 Allergies: No Known Allergies. Medications: Budesonide 3 Capsule (of 3 mg) Capsule Delayed Release Particles Oral daily Mesalamine ER 2 Capsule (of 500 mg) Capsule, controlled release Oral four times a day Family History: His mother and father are in good health, both at age 48. A brother has ADHD, but he is otherwise in good health. There is no history of anemia in the family. Social History: Mr. Lucio is single. Mr. Lucio no longer smokes. He is a former drinker. He has indicated exposure to the following products: chewing tobacco. He is . 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 He is a non-smoker. He has had moderate alcohol use, typically 2 beers per day, but occasionally a little more. He has cut down now. Physical Examination: Performed on Jan 29, 2022 10:08: Height - 70.00 in, Weight - 112.8 lbs (LOW), BSA - 1.64 sq.m, BMI - 16.19 (LOW), Temperature - 98.6 F, Pulse - 91 /min, Respiration - 16 /min, BP - 127/81 mm(hg), O2 Sat - 99 %, Pain - 0, and Fatigue - 2. Performance Status: 0 - Fully active, able to carry on all predisease activities without restrictions. (ECOG) Constitutional Alert, cooperative, oriented. Mood and affect appropriate. Appears close to chronological age. Well nourished. Well developed. Head Normocephalic; no scars. Eyes Conjunctivae and sclerae are clear and without icterus. Pupils are reactive and equal. Respiratory Lungs are clear to auscultation without rhonchi or wheezing. Cardiovascular Regular rate and rhythm of heart without murmurs, gallops or rubs. Abdomen Non-tender, non-distended, no masses, ascites or hepatosplenomegaly. Good bowel sounds. No guarding or rebound tenderness. Extremities No visible deformities, no cyanosis, clubbing or edema. Pulses 3+ and equal bilaterally. Musculoskeletal No tenderness or swelling, normal range of motion without obvious weakness. Psychiatric Alert and oriented times three. Coherent speech. Verbalizes understanding of our discussions today. Laboratory: Most recent lab results are not available for this patient. Impression: 1. Hypochromic/microcytic anemia consistent with iron deficiency. At least some component appears to be due to GI blood loss. It is uncertain to what extent inadequate oral iron absorption may be contributing. 2. He has had some chronic anxiety. Plan: Patient with hypochromic/microcytic anemia consistent with iron deficiency. At least some component appears to be due to GI blood loss, as he was having melanotic stools at initial presentation in April 2021, and he recently had a heme positive stool test. Thus far a specific source for the blood loss has not been determined. He is scheduled to have further evaluation with camera endoscopy. Patient presents today for follow-up. He has been following with gastroenterology Dr. Valencia in [place]. He has recently been diagnosed with Crohn's disease. His recent labs indicate a hemoglobin of 10.4 and hematocrit at 38.3 on 01/11/2022. His iron studies at that time were 23, and percent saturation at 7.4. His labs were repeated on 01/25/2022 and his reticulocyte count was 0.7%, his iron had decreased to 17, and his percent saturation decreased to 6.2. C-reactive protein was also checked and it was elevated at 19.9. Patient has not been tolerating his oral iron supplementation due to nausea while taking. We will administer Injectafer 750 mg weekly x2 upon approval from insurance. He will follow-up in 1 month with CBC, and iron studies. Signed By: Bebe Fernando N.P. <<Signature on File>>
== END 2022-01-29 09:53 | disposition home or self-care (01) ==
PROVIDERS: PCP Electrodiagnostic Medicine; Visit Provider Nurse Practitioner Family
DX: D50.9 Iron deficiency anemia, unspecified (principal); F41.9 Anxiety disorder, unspecified
CPT/HCPCS: 99214

== ENCOUNTER 2022-02-11 07:57 | Outpatient (CLI) | payer OTHER, SELFPAY | END 2022-02-11 07:58 | disposition home or self-care (01) | LOC: ONCMED 07:58 | PROVIDERS: PCP Electrodiagnostic Medicine; Visit Provider Nurse Practitioner Family | DX: D50.9 Iron deficiency anemia, unspecified (principal); Z79.899 Other long term (current) drug therapy | CPT/HCPCS: 96365; 96366; 96367; 96374; J1750; J7030 ==

== ENCOUNTER 2022-04-22 13:30 | Oncology outpatient (recurring) (ONCR) | payer OTHER, SELFPAY ==
[2022-03-24 15:05] LABS: Basophils % 0.2 %; Eosinophils % 0.1 %; Hematocrit 44.5 % (42.0-52.0); Hemoglobin 14.4 g/dL (11.7-16.6); Lymphocytes # 0.7 10^3/uL (0.8-4.8); Lymphocytes % 5.9 %; Mean Corpuscular HGB Conc 32.4 g/dL (30.0-36.0); Mean Corpuscular Hemoglobin 27.7 pg (28.0-34.0); Mean Corpuscular Volume 85.7 fl (80-94); Mean Platelet Volume 11.7 fL (7.4-10.4); Monocytes # 0.2 10^3/uL (0.2-0.9); Monocytes % 2.2 %; Neutrophils # 10.13 10^3/uL (1.8-7.7); Neutrophils % 91.2 %; Nucleated Red Blood Cells % 0 %; Platelet Count 285 10^3/cmm (130-400); Red Blood Count 5.19 10^6/uL (4.1-5.3); Red Cell Distribution Width 16.3 % (12.1-15.1); White Blood Count 11.1 10^3/uL (4.0-10.0)
[2022-03-24 15:24] LABS: Ferritin 16 ng/mL (30-400); Iron 47 ug/dL (59-158); Percent Saturation 14.6 % (20-50); Total Iron Binding Capacity 320 mcg/dl; Unsaturated Iron Binding 273 ug/dL (112-347)
[2022-04-08 13:40] VITALS: BP 120/89; PULSE 101; RESP 18; TEMP 37.1; O2SAT 98
[2022-04-08] MEDS: sodium chloride 0.9% 250 ML 75 ML IV (14:03)
[2022-04-08] MEDS: ferric gluconate 125 MG in sodium chloride 0.9% (100 ml) 100 ML 110 MG IV (14:03)
[2022-04-08 15:28] VITALS: BP 116/77; PULSE 84; RESP 18; TEMP 36.9; O2SAT 99
[2022-04-15] MEDS: sodium chloride 0.9% 250 ML 75 ML IV (13:45)
[2022-04-15] MEDS: ferric gluconate 125 MG in sodium chloride 0.9% (100 ml) 100 ML 110 MG IV (13:46)
[2022-04-15 13:49] VITALS: BP 129/71; PULSE 89; RESP 18; TEMP 37.2; O2SAT 99
[2022-04-15 14:53] VITALS: BP 112/69; PULSE 76; RESP 18; TEMP 37.2; O2SAT 99
[2022-04-22] MEDS: ferric gluconate 125 MG in sodium chloride 0.9% (100 ml) 100 ML 110 MG IV (13:29)
[2022-04-22 14:30] VITALS: BP 114/60; PULSE 79; RESP 16; TEMP 36.2; O2SAT 99
== END 2022-04-22 23:59 | disposition home or self-care (01) ==
PROVIDERS: Nurse Practitioner Family; PCP Electrodiagnostic Medicine; Visit Provider Internal Medicine Medical Oncology
DX: D50.9 Iron deficiency anemia, unspecified (principal)
CPT/HCPCS: 82728; 83540; 83550; 85025; 96365; J2916; J7050

== ENCOUNTER 2022-05-13 13:30 | Oncology outpatient (recurring) (ONCR) | payer OTHER, SELFPAY ==
[2022-04-29] MEDS: sodium chloride 0.9% 250 ML 75 ML IV (13:57)
[2022-04-29] MEDS: ferric gluconate 125 MG in sodium chloride 0.9% (100 ml) 100 ML 110 MG IV (13:57)
[2022-05-06] MEDS: sodium chloride 0.9% 250 ML 100 ML IV (13:39)
[2022-05-06] MEDS: ferric gluconate 125 MG in sodium chloride 0.9% (100 ml) 100 ML 110 MG IV (13:42)
[2022-05-06 13:45] VITALS: BP 111/77; PULSE 81; RESP 18; TEMP 36.6; O2SAT 100
[2022-05-06 15:21] VITALS: BP 111/67; PULSE 92; RESP 16; TEMP 36.8; O2SAT 98
[2022-05-13 13:38] VITALS: BP 129/78; PULSE 89; RESP 18; TEMP 37.2; O2SAT 98
[2022-05-13] MEDS: ferric gluconate 125 MG in sodium chloride 0.9% (100 ml) 100 ML 110 MG IV (14:05)
[2022-05-13] MEDS: sodium chloride 0.9% 250 ML 75 ML IV (14:06)
== END 2022-05-23 23:59 | disposition home or self-care (01) ==
PROVIDERS: PCP Electrodiagnostic Medicine; Visit Provider Internal Medicine Medical Oncology
DX: D50.9 Iron deficiency anemia, unspecified (principal); Z53.9 Procedure and treatment not carried out, unspecified reason
CPT/HCPCS: 96365; J2916; J7050

== ENCOUNTER 2022-06-23 12:08 | Oncology outpatient (recurring) (ONCR) | payer OTHER, SELFPAY ==
[2022-06-23 12:48] LABS: Basophils % 0.2 %; Eosinophils % 0.1 %; Hemoglobin 16.5 g/dL (11.7-16.6); Lymphocytes # 0.7 10^3/uL (0.8-4.8); Mean Corpuscular HGB Conc 33.7 g/dL (30.0-36.0); Mean Corpuscular Hemoglobin 29.7 pg (28.0-34.0); Mean Corpuscular Volume 88.1 fl (80-94); Mean Platelet Volume 10.8 fL (7.4-10.4); Monocytes # 0.4 10^3/uL (0.2-0.9); Monocytes % 4.4 %; Neutrophils # 8.76 10^3/uL (1.8-7.7); Nucleated Red Blood Cells % 0 %; Platelet Count 215 10^3/cmm (130-400); Red Blood Count 5.56 10^6/uL (4.1-5.3); Red Cell Distribution Width 14.3 % (12.1-15.1)
[2022-06-23 13:15] LABS: Ferritin 112 ng/mL (30-400); Iron 239 ug/dL (59-158); Percent Saturation 73.3 % (20-50); Total Iron Binding Capacity 326 mcg/dl; Unsaturated Iron Binding 87 ug/dL (112-347)
== END 2022-06-23 23:59 | disposition home or self-care (01) ==
PROVIDERS: Nurse Practitioner Family; PCP Electrodiagnostic Medicine; Visit Provider Internal Medicine Medical Oncology
DX: K50.90 Crohn's disease, unspecified, without complications; D50.0 Iron deficiency anemia secondary to blood loss (chronic); Z79.899 Other long term (current) drug therapy
CPT/HCPCS: 36415; 82728; 83540; 83550; 85025; 99214

== ENCOUNTER 2023-05-18 15:00 | Oncology outpatient (recurring) (ONCR) | payer OTHER, SELFPAY ==
[2023-05-13 08:30] VITALS: BP 127/91; PULSE 92; RESP 18; TEMP 37.1; O2SAT 98
[2023-05-13 08:55] LABS: Basophils % 0.4 %; Eosinophils # 0.1 10^3/uL (0.0-0.8); Eosinophils % 2.3 %; Hematocrit 49.9 % (42.0-52.0); Hemoglobin 17.4 g/dL (11.7-16.6); Lymphocytes # 1.1 10^3/uL (0.8-4.8); Mean Corpuscular HGB Conc 34.9 g/dL (30.0-36.0); Mean Corpuscular Hemoglobin 31.2 pg (28.0-34.0); Mean Corpuscular Volume 89.4 fl (80-94); Mean Platelet Volume 10.7 fL (7.4-10.4); Monocytes # 0.5 10^3/uL (0.2-0.9); Monocytes % 9.4 %; Neutrophils % 64.7 %; Nucleated Red Blood Cells % 0 %; Platelet Count 211 10^3/cmm (130-400); Red Blood Count 5.58 10^6/uL (4.1-5.3); Red Cell Distribution Width 12.1 % (12.1-15.1); White Blood Count 4.8 10^3/uL (4.0-10.0)
[2023-05-13 09:24] LABS: Alanine Aminotransferase 10 U/L (0-41); Albumin Level 4.5 g/dL (3.5-5.2); Alkaline Phosphatase 95 U/L (40-130); Anion Gap 12.4 (5-19); Aspartate Amino Transferase 13 U/L (0-40); Blood Urea Nitrogen 15 mg/dL (6-20); Calcium 9.9 mg/dL (8.5-10.5); Carbon Dioxide 29 mmol/L (22-29); Chloride 103 mmol/L (98-107); Ferritin 74 ng/mL (30-400); Globulin 2.8 g/dL (1.3-4.6); Glomerular Filtration Rate 117.8 mL/min (90-130); Glucose 93 mg/dL (65-115); Iron 233 ug/dL (59-158); Osmolality Calculated 291 mOsm/kg (285-295); Percent Saturation 81.1 % (20-50); Potassium 4.4 mmol/L (3.5-5.1); Sodium 140 mmol/L (136-145); Total Bilirubin 0.8 mg/dL (0.15-1.2); Total Iron Binding Capacity 287 mcg/dl; Total Protein 7.3 g/dL (6.6-8.7); Unsaturated Iron Binding 54 ug/dL (112-347)
== END 2023-05-23 23:59 | disposition home or self-care (01) ==
PROVIDERS: PCP Electrodiagnostic Medicine; Visit Provider Internal Medicine Medical Oncology
DX: D50.9 Iron deficiency anemia, unspecified (principal)
CPT/HCPCS: 36415; 80053; 82728; 83540; 83550; 85025

== ENCOUNTER 2023-11-03 13:47 | Oncology outpatient (recurring) (ONCR) | payer OTHER, SELFPAY ==
[2023-11-03 14:10] VITALS: BP 131/83; PULSE 76; RESP 16; TEMP 37.1; O2SAT 96
[2023-11-03 14:15] LABS: Basophils % 0.3 %; Eosinophils # 0.1 10^3/uL (0.0-0.8); Eosinophils % 1.9 %; Hematocrit 45.4 % (37-53); Lymphocytes % 32.6 %; Mean Corpuscular HGB Conc 35.9 g/dL (30-55); Mean Corpuscular Hemoglobin 31.3 pg (27-33); Mean Corpuscular Volume 87.3 fl (82-101); Mean Platelet Volume 10.2 fL (7.4-10.4); Monocytes # 0.3 10^3/uL (0.2-0.9); Monocytes % 10.3 %; Neutrophils % 54.9 %; Nucleated Red Blood Cells % 0 %; Platelet Count 187 10^3/cmm (157-399); Red Cell Distribution Width 11.9 % (12.1-15.1)
[2023-11-03 14:40] LABS: Alanine Aminotransferase 18 U/L (0-41); Albumin Level 4.3 g/dL (3.5-5.2); Alkaline Phosphatase 93 U/L (40-130); Anion Gap 15.9 (5-19); Aspartate Amino Transferase 21 U/L (0-40); Blood Urea Nitrogen 13 mg/dL (6-20); Calcium 9.2 mg/dL (8.5-10.5); Carbon Dioxide 26 mmol/L (22-29); Chloride 100 mmol/L (98-107); Ferritin 189 ng/mL (30-400); Globulin 3.3 g/dL (1.3-4.6); Glomerular Filtration Rate 164.2 mL/min (90-130); Glucose 88 mg/dL (65-115); Iron 171 ug/dL (59-158); Osmolality Calculated 286 mOsm/kg (285-295); Percent Saturation 69.7 % (20-50); Potassium 3.9 mmol/L (3.5-5.1); Sodium 138 mmol/L (136-145); Total Bilirubin 0.8 mg/dL (0.15-1.2); Total Iron Binding Capacity 245 mcg/dl; Total Protein 7.6 g/dL (6.6-8.7); Unsaturated Iron Binding 74 ug/dL (112-347)
[2023-11-03 16:04] LABS: HIV 1 & 2 Antigen Non-Reactive (Non-Reactiv)
[2023-11-03 16:05] LABS: HIV 1 & 2 Antibody Non-Reactive (Non-Reactiv)
[2023-11-04 14:44] LABS: LAB Peripheral Smear Sent for Review
[2023-11-07 13:43] LABS: Leukemia Profile (BBPL) See Report; Lymphoma Profile (BBPL) See Report
== END 2023-11-23 23:59 | disposition home or self-care (01) ==
PROVIDERS: Internal Medicine; PCP Electrodiagnostic Medicine; Visit Provider Internal Medicine Medical Oncology
DX: D50.9 Iron deficiency anemia, unspecified; R79.0 Abnormal level of blood mineral
CPT/HCPCS: 36415; 80053; 81256; 82728; 83540; 83550; 85025; 87806; 88184; 88185

== ENCOUNTER 2023-12-05 12:29 | Oncology outpatient (recurring) (ONCR) | payer OTHER, SELFPAY ==
[2023-12-05 13:13] LABS: Basophils % 0.4 %; Eosinophils % 0.8 %; Hematocrit 52.1 % (37-53); Lymphocytes # 0.8 10^3/uL (0.8-4.8); Lymphocytes % 15.4 %; Mean Corpuscular HGB Conc 35.1 g/dL (30-55); Mean Corpuscular Hemoglobin 31.7 pg (27-33); Mean Corpuscular Volume 90.3 fl (82-101); Mean Platelet Volume 10.3 fL (7.4-10.4); Monocytes # 0.3 10^3/uL (0.2-0.9); Neutrophils # 4.08 10^3/uL (1.8-7.7); Neutrophils % 78.2 %; Nucleated Red Blood Cells % 0 %; Platelet Count 211 10^3/cmm (157-399); Red Blood Count 5.77 10^6/uL (3.85-5.65); Red Cell Distribution Width 12.2 % (12.1-15.1); White Blood Count 5.21 10^3/uL (3.29-11.43)
[2023-12-05 13:31] LABS: Alanine Aminotransferase 13 U/L (0-41); Albumin Level 4.9 g/dL (3.5-5.2); Alkaline Phosphatase 115 U/L (40-130); Anion Gap 13.7 (5-19); Aspartate Amino Transferase 16 U/L (0-40); Blood Urea Nitrogen 12 mg/dL (6-20); Calcium 9.8 mg/dL (8.5-10.5); Carbon Dioxide 28 mmol/L (22-29); Chloride 98 mmol/L (98-107); Ferritin 100 ng/mL (30-400); Globulin 3.4 g/dL (1.3-4.6); Glomerular Filtration Rate 137.4 mL/min (90-130); Glucose 121 mg/dL (65-115); Iron 202 ug/dL (59-158); Osmolality Calculated 283 mOsm/kg (285-295); Percent Saturation 60.8 % (20-50); Potassium 3.7 mmol/L (3.5-5.1); Sodium 136 mmol/L (136-145); Total Bilirubin 0.7 mg/dL (0.15-1.2); Total Iron Binding Capacity 332 mcg/dl; Total Protein 8.3 g/dL (6.6-8.7); Unsaturated Iron Binding 130 ug/dL (112-347)
[2023-12-05 13:52] VITALS: BP 113/73; PULSE 87; RESP 18; TEMP 36.9; O2SAT 97
[2023-12-05 14:19] VITALS: BP 109/75; PULSE 109; RESP 16; TEMP 36.8; O2SAT 96
== END 2023-12-22 23:59 | disposition home or self-care (01) ==
LOC: ONCMED 12:29
PROVIDERS: Internal Medicine; PCP Electrodiagnostic Medicine; Visit Provider Internal Medicine Medical Oncology
DX: D50.9 Iron deficiency anemia, unspecified (principal); R79.0 Abnormal level of blood mineral
CPT/HCPCS: 36415; 80053; 82728; 83540; 83550; 85025; 99195

== ENCOUNTER 2024-02-02 12:39 | Oncology outpatient (recurring) (ONCR) | payer OTHER, SELFPAY ==
[2024-02-02 12:56] LABS: Basophils % 0.4 %; Eosinophils # 0.1 10^3/uL (0.0-0.8); Eosinophils % 1.5 %; Hematocrit 46.8 % (37-53); Lymphocytes # 1.3 10^3/uL (0.8-4.8); Lymphocytes % 19.3 %; Mean Corpuscular HGB Conc 35.7 g/dL (30-55); Mean Corpuscular Hemoglobin 31.6 pg (27-33); Mean Corpuscular Volume 88.6 fl (82-101); Mean Platelet Volume 10.5 fL (7.4-10.4); Monocytes # 0.5 10^3/uL (0.2-0.9); Monocytes % 7.4 %; Neutrophils # 4.79 10^3/uL (1.8-7.7); Neutrophils % 71.1 %; Nucleated Red Blood Cells % 0 %; Platelet Count 230 10^3/cmm (157-399); Red Blood Count 5.28 10^6/uL (3.85-5.65); Red Cell Distribution Width 12.1 % (12.1-15.1); White Blood Count 6.74 10^3/uL (3.29-11.43)
[2024-02-02 13:13] LABS: Alanine Aminotransferase 11 U/L (0-41); Albumin Level 4.5 g/dL (3.5-5.2); Alkaline Phosphatase 94 U/L (40-130); Anion Gap 15.1 (5-19); Aspartate Amino Transferase 13 U/L (0-40); Blood Urea Nitrogen 9 mg/dL (6-20); Calcium 9.9 mg/dL (8.5-10.5); Carbon Dioxide 29 mmol/L (22-29); Chloride 103 mmol/L (98-107); Creatinine Clr Calc Pharmacy 117.9891; Ferritin 39 ng/mL (30-400); Globulin 2.7 g/dL (1.3-4.6); Glomerular Filtration Rate 137.4 mL/min (90-130); Glucose 96 mg/dL (65-115); Iron 158 ug/dL (59-158); Osmolality Calculated 295 mOsm/kg (285-295); Percent Saturation 56.4 % (20-50); Potassium 4.1 mmol/L (3.5-5.1); Sodium 143 mmol/L (136-145); Total Bilirubin 0.5 mg/dL (0.15-1.2); Total Iron Binding Capacity 280 mcg/dl; Total Protein 7.2 g/dL (6.6-8.7); Unsaturated Iron Binding 122 ug/dL (112-347)
== END 2024-02-21 23:59 | disposition home or self-care (01) ==
PROVIDERS: Internal Medicine; PCP Electrodiagnostic Medicine; Visit Provider Internal Medicine Medical Oncology
DX: D50.9 Iron deficiency anemia, unspecified (principal); R79.0 Abnormal level of blood mineral
CPT/HCPCS: 36415; 80053; 82728; 83540; 83550; 85025